=== PATIENT | male | born 1950 | race Caucasian/White ===

== ENCOUNTER 2016-09-13 09:49 | Day surgery (SDC) | payer BC ==
[2016-09-13] VITALS (27 sets, daily range): BP systolic 94–142; BP diastolic 56–100; PULSE 74–93; TEMP 97.7–98.1
[~2016-09-13] VITALS: Ht 175.3 cm; Wt 100.8 kg
[~2016-09-13 09:49] MED LIST: ALEVE 220MG220 MG PO; ALIGN; BEANO1 TAB PO; CASODEX 50MG TA50 MG PO; CIPRO 500MG TA500 MG PO; DEXILANT60 MG PO; LEVAQUIN 750MG750 M1 PO; MEN'S MULTIVITA1 TAB PO; NORCO 325 MG-51 TAB PO; NORVASC 5MG5 MG/TAB PO; PRILOSEC 20MG20 MG PO; PYRIDIUM 100MG100 MG PO; SENOKOT S 50 MG1 TAB PO; SKELAXIN 800MG800 MG PO; TOPROL XL 50MG50 MG PO; TUMS500 MG
[2016-09-13] MEDS ORDERED: ALIGN PO (10:39)
[2016-09-13] MEDS ORDERED: SENOKOT8.6 MG PO (10:41)
[2016-09-13] MEDS ORDERED: NORCO 325 MG-51 TAB PO (15:06)
[2016-09-13] MEDS ORDERED: PYRIDIUM 100MG100 MG PO (15:06)
== END 2016-09-13 16:05 | disposition home or self-care (01) ==
LOC: SDCO 09:49 → COL.RAD 10:00 → SDCO 14:30
DX: N13.5 Crossing vessel and stricture of ureter without hydronephrosis (principal); C61 Malignant neoplasm of prostate; M19.90 Unspecified osteoarthritis, unspecified site; I10 Essential (primary) hypertension; Z87.19 Personal history of other diseases of the digestive system; Z87.442 Personal history of urinary calculi; Z87.440 Personal history of urinary (tract) infections; Z79.899 Other long term (current) drug therapy
CPT/HCPCS: C1769; C1887; C2617; J0360; J0690; J1100; J2250; J2405; J2704; J3010; J7120

== ENCOUNTER 2016-12-26 08:44 | Day surgery (SDC) | payer BC ==
[~2016-12-26] VITALS: Ht 175.3 cm; Wt 104.5 kg
[~2016-12-26 08:44] MED LIST changes: +ALIGN PO; +SENOKOT8.6 MG PO
[2016-12-26] MEDS ORDERED: PROTONIX 40MG T40 MG PO (10:16)
[2016-12-26] MEDS ORDERED: VITAMINC1000TA PO (10:18)
[2016-12-26] MEDS ORDERED: LUPRON5 MG/M2 IJ (10:18)
[2016-12-26] MEDS ORDERED: MULTI VITAMINS1 TAB PO (10:19)
[2016-12-26] MEDS ORDERED: IRON 27 MG PO (10:19)
[2016-12-26] MEDS ORDERED: MIRALAX PA17 GM/Dose PO (10:20)
[2016-12-26 12:15] VITALS: BP 116/66; PULSE 69; TEMP 97.7
[2016-12-26 12:30] VITALS: BP 133/87; PULSE 75
[2016-12-26 12:45] VITALS: BP 117/76; PULSE 71
[2016-12-26 13:55] VITALS: BP 125/80; PULSE 82; TEMP 97.7
== END 2016-12-26 13:06 | disposition home or self-care (01) ==
LOC: SDCO 08:44
DX: C61 Malignant neoplasm of prostate (principal); N13.5 Crossing vessel and stricture of ureter without hydronephrosis; M19.90 Unspecified osteoarthritis, unspecified site; I10 Essential (primary) hypertension; Z87.442 Personal history of urinary calculi; Z87.440 Personal history of urinary (tract) infections
CPT/HCPCS: C1769; C2617; J0690; J2405; J2704; J3010; J7120

== ENCOUNTER 2017-05-01 08:29 | Day surgery (SDC) | payer BC ==
[~2017-05-01] VITALS: Ht 175.3 cm; Wt 105.9 kg
[~2017-05-01 08:29] MED LIST changes: +IRON 27 MG PO; +LUPRON5 MG/M2 IJ; +MIRALAX PA17 GM/Dose PO; +MULTI VITAMINS1 TAB PO; +PROTONIX 40MG T40 MG PO; +VITAMINC1000TA PO
[2017-05-01 09:01] VITALS: BP 138/95; PULSE 92; TEMP 97.7
[2017-05-01] MEDS ORDERED: PYRIDIUM 100MG100 MG PO (09:29)
[2017-05-01] MEDS ORDERED: SENNA8.6 MG PO (09:30)
[2017-05-01] MEDS ORDERED: GAS-X ULTRA ST180 MG PO (09:32)
[2017-05-01] MEDS ORDERED: TYLENOL 500MG500 MG PO (09:33)
[2017-05-01 11:20] VITALS: BP 124/76; PULSE 73; TEMP 97.9
[2017-05-01 11:35] VITALS: BP 136/82; PULSE 68
[2017-05-01 11:50] VITALS: BP 136/80; PULSE 70
[2017-05-01 12:05] VITALS: BP 135/80; PULSE 72
== END 2017-05-01 12:50 | disposition home or self-care (01) ==
LOC: SDCO 08:29
DX: C61 Malignant neoplasm of prostate (principal); N13.1 Hydronephrosis with ureteral stricture, not elsewhere classified; C79.9 Secondary malignant neoplasm of unspecified site; I10 Essential (primary) hypertension; K21.9 Gastro-esophageal reflux disease without esophagitis; Z87.442 Personal history of urinary calculi
CPT/HCPCS: C1769; C2617; J0690; J1100; J2405; J2704; J3010; J7120

== ENCOUNTER → 2017-05-16 | Outpatient (CLI) | payer BC ==
[~2017-05-16] MED LIST changes: +GAS-X ULTRA ST180 MG PO; +SENNA8.6 MG PO; +TYLENOL 500MG500 MG PO
== END ==
LOC: COL.RAD 08:58
DX: C79.51 Secondary malignant neoplasm of bone (principal); C61 Malignant neoplasm of prostate
CPT/HCPCS: A9503